=== PATIENT | male | born 1965 | race Two or more races ===

== ENCOUNTER 2019-02-26 03:53 | Emergency (ER) | payer SELFPAY ==
[~2019-02-26] VITALS: Ht 177.8 cm; Wt 86.2 kg
[2019-02-26 04:05] VITALS: BP 186/126
--- NOTE | 2019-02-26 04:05 | NUR ---
ED Nurse Note: pt came with RA 68 from home c/o of chest pain and dizzieness. per pt he takes metoprolol at home but ran out.
[2019-02-26] MEDS ORDERED: Ketorolac 30mg Inj IV ONE (04:15)
[2019-02-26 04:16] LABS: BASOPHILS % (AUTO) 0.6 % (0.0-2.0); EOSINOPHILS % (AUTO) 0.1 % (0.0-3.0); HEMATOCRIT 53.7 % (42.0-52.0); LYMPHOCYTES % (AUTO) 8.8 % (20.0-45.0); MEAN CORPUSCULAR VOLUME 91 FL (80-99); MONOCYTES % (AUTO) 6.5 % (1.0-10.0); PLATELET COUNT 294 K/UL (150-450); RED BLOOD COUNT 5.89 M/UL (4.70-6.10); RED CELL DISTRIBUTION WIDTH 12.1 % (11.6-14.8); WHITE BLOOD COUNT 11.5 K/UL (4.8-10.8)
[2019-02-26 04:32] LABS: ANION GAP 11 mmol/L (5-15); BLOOD UREA NITROGEN 17 mg/dL (7-18); CARBON DIOXIDE 26 MMOL/L (21-32); CHLORIDE 103 MMOL/L (98-107); CREATININE 1.2 MG/DL (0.55-1.30); POTASSIUM 3.3 MMOL/L (3.5-5.1); SODIUM 140 MMOL/L (136-145)
--- NOTE | 2019-02-26 04:55 | NUR ---
ED Nurse Note: informed ermd that pt is unable to urinate. per ermd, no longer need urine specimen
--- NOTE | 2019-02-26 04:59 | Emergency Room Report ---
History of Present Illness General Chief Complaint: Hypertension Source: Patient, EMS Present Illness HPI Is a 53-year-old male with a history of high blood pressure. He's been out of his blood pressure medication for a week now. He presents with chief complaint of headache. Pain is throbbing in nature. Frontal area. No nausea no vomiting. No fever chills but no chest pain. Denies any other complaint. Blood pressure by EMS was systolic over 200. Allergies: Coded Allergies: No Known Allergies (Unverified , 02/26/19) Patient History Past Medical History: see triage record, old chart reviewed, HTN Past Surgical History: none Pertinent Family History: none Social History: Denies: smoking Immunizations: other Reviewed Nursing Documentation: PMH: Agreed; PSxH: Agreed Nursing Documentation-PMH Hx Hypertension: Yes Review of Systems Eye: Denies: eye pain, blurred vision ENT: Denies: ear pain, nose congestion, throat swelling Respiratory: Denies: cough, shortness of breath Cardiovascular: Denies: chest pain, palpitations Gastrointestinal: Denies: abdominal pain, diarrhea, nausea, vomiting Musculoskeletal: Denies: back pain, joint pain Skin: Denies: rash Neurological: Reports: headache; Denies: numbness Endocrine: Denies: increased thirst, increased urine Hematologic/Lymphatic: Denies: easy bruising All Other Systems: negative except mentioned in HPI Physical Exam Vital Signs Date Time Temp Pulse Resp B/P (MAP) Pulse Ox O2 Delivery O2 Flow Rate FiO2 02/26/19 03:55 97.9 110 18 186/126 96 Room Air vitals with high blood pressure Sp02 EP Interpretation: reviewed, normal General Appearance: well appearing, no apparent distress, alert Head: normocephalic, atraumatic Eyes: bilateral eye PERRL, bilateral eye EOMI ENT: hearing grossly normal, normal pharynx Neck: full range of motion, supple, no meningismus Respiratory: chest non-tender, lungs clear, normal breath sounds Cardiovascular #1: regular rate, rhythm, no murmur Gastrointestinal: normal bowel sounds, non tender, no mass, no organomegaly, no bruit, non-distended Musculoskeletal: back normal, gait/station normal, normal range of motion Psychiatric: mood/affect normal Skin: warm/dry Medical Decision Making Diagnostic Impression: Primary Impression: Hypertension Qualified Codes: I10 - Essential (primary) hypertension Additional Impression: Headache Qualified Codes: R51 - Headache ER Course patient with headache and high blood pressure. This may be secondary to noncompliance with his medication. There is no focal deficit to indicate TIA or CVA. Blood pressure improved and now he has minimal headache. He was also receive a dose of Toradol. I see no evidence of endorgan damage. We'll discharge home. He does have a primary care doctor but has not seen him for refill on his medication. Lab Results Impression labs unremarkable Last Vital Signs Date Time Temp Pulse Resp B/P (MAP) Pulse Ox O2 Delivery O2 Flow Rate FiO2 02/26/19 04:25 97.8 02/26/19 04:10 186/126 02/26/19 04:09 110 02/26/19 04:05 18 96 Room Air Status: improved Disposition: HOME, SELF-CARE Condition: Stable Scripts Atenolol* (TENORMIN*) 100 Mg Tablet 100 MG ORAL DAILY, #90 TAB Prov: Jason Zabala MD 02/26/19 Referrals: NON PHYSICIAN (PCP) Additional Instructions: Follow-up with your doctor in a week for recheck. Return if symptom worsen. Jason Zabala MD February 26, 2019 04:59
[2019-02-26] MEDS ORDERED: ATENOLOL100 MG ORAL (05:01)
[2019-02-26 05:11] VITALS: BP 179/99
--- NOTE | 2019-02-26 05:12 | NUR ---
ER DISCHARGE NOTE: Patient is cleared to be discharged per ERMD, pt is aox4, on room air, with stable vital signs. pt was given dc and prescription instructions, pt was able to verbalize understanding, pt id band and iv site removed without complications. pt is able to ambulate with steady gait. pt took all belongings.
== END 2019-02-26 05:13 | disposition home or self-care (01) ==
LOC: EDBD 03:53 → EMR 04:05
DX: I10 Essential (primary) hypertension (principal); R51 Headache; Z91.14 Patient's other noncompliance with medication regimen
CPT/HCPCS: 36415; 80048; 85025; 96374; 96375; 96376; 99284; J0360; J1885